=== PATIENT | female | born 1960 | race Caucasian/White ===

== ENCOUNTER 2017-06-11 09:56 | Emergency (ER) | payer BC ==
[~2017-06-11] VITALS: Ht 162.6 cm; Wt 96.2 kg
[2017-06-11] MEDS ORDERED: PAXIL10 MG PO (10:01)
[2017-06-11] MEDS ORDERED: ADIPEX-P37.5 MG PO (10:02)
[2017-06-11] MEDS ORDERED: NAPROSYN500 MG PO (11:16)
[2017-06-11] MEDS ORDERED: NORFLEX100 MG PO (11:16)
[2017-06-11 11:18] VITALS: BP 148/65
== END 2017-06-11 11:35 | disposition home or self-care (01) ==
LOC: ER 09:56
DX: S46.911A Strain of unspecified muscle, fascia and tendon at shoulder and upper arm level, right arm, initial encounter (principal); S80.11XA Contusion of right lower leg, initial encounter; S80.12XA Contusion of left lower leg, initial encounter; S39.012A Strain of muscle, fascia and tendon of lower back, initial encounter; F41.9 Anxiety disorder, unspecified; W10.8XXA Fall (on) (from) other stairs and steps, initial encounter; Y93.89 Activity, other specified; Y92.89 Other specified places as the place of occurrence of the external cause; Y99.8 Other external cause status

== ENCOUNTER → 2020-08-09 | Outpatient (CLI) | payer OTHER, BC ==
[~2020-08-09] MED LIST: ADIPEX-P37.5 MG PO; NAPROSYN500 MG PO; NORFLEX100 MG PO; PAXIL10 MG PO
== END ==
LOC: LAB 14:07
PROVIDERS: ATTEND Family Medicine
DX: R50.9 Fever, unspecified (principal); Z20.828 Contact with and (suspected) exposure to other viral communicable diseases